=== PATIENT | female | born 1960 | race Caucasian/White ===

== ENCOUNTER → 2020-12-16 | Outpatient (CLI) | payer BC, MEDICARE ==
[~2020-12-16] MED LIST: ALPRAZOLAM0.5 MG PO; ASPIR 8181 MG PO; BACTRIM D.S. TAB1 EA PO; COREG 12.5MG12.5 MG PO; DULERA 100 MCG8.8 GM INH; FENOFIBRIC ACI105 MG PO; NORCO 10-325 T1 EACH PO; NORCO 7.5-3251 EACH PO; PREMPRO 0.625-1 EACH PO; PRINIVIL10 MG PO; PROAIR HFA8.5 GM INH; SINGULAIR10 MG PO; VENLAFAXINE HC225 MG PO; VENLAFAXINE HCL75 M2 PO; VYTORIN 10-401 EACH PO; ZANAFLEX4 MG PO
== END ==
LOC: SLEEP 10:09
DX: G47.33 Obstructive sleep apnea (adult) (pediatric) (principal)
CPT/HCPCS: 95810